=== PATIENT | male | born 1990 | race Caucasian/White ===

== ENCOUNTER 2018-03-31 16:36 | Emergency (ER) | payer MEDICAID ==
[~2018-03-31] VITALS: Ht 170.2 cm; Wt 97.5 kg
[2018-03-31 17:06] VITALS: BP 138/71
--- NOTE | 2018-03-31 17:56 | NUR ---
27/M BIB MOM WITH C/O ALLERGIC REACTION WITH HIVES STARTED YESTERDAY, DENIES NEW MEDS OR FOOD. DENIES N/V/D; SKIN IS PINK/WARM/DRY; AAOX4 WITH EVEN AND STEADY GAIT; LUNGS CLEAR BL; PT DENIES ANY FEVER, CP, SOB, OR COUGH AT THIS TIME; PATIENT STATES PAIN OF 0/10 AT THIS TIME. PATIENT POSITIONED FOR COMFORT; HOB ELEVATED; BEDRAILS UP X2; BED DOWN. ER MD MADE AWARE OF PT STATUS.
--- NOTE | 2018-03-31 17:57 | NUR ---
Patient being evaluated by physician at bedside.
[2018-03-31] MEDS ORDERED: diphenhydrAMINE 50 MG/ML VIAL IM ONE (18:05)
[2018-03-31] MEDS ORDERED: methylPREDNISolone SS 125 MG in WATER STERILE 2 ML IM ONE (18:05)
[2018-03-31] MEDS ORDERED: FAMOTIDINE 20 MG TAB PO ONE (18:05)
[2018-03-31 18:53] VITALS: BP 121/70
--- NOTE | 2018-03-31 18:54 | NUR ---
Patient discharged with v/s stable. Written and verbal after care instructions given and explained. Patient alert, oriented and verbalized understanding of instructions. Ambulatory with steady gait. All questions addressed prior to discharge. ID band removed. Patient advised to follow up with PMD. Rx of CLARITIN,PREDNISONE AND PEPCID given. Patient educated on indication of medication including possible reaction and side effects. Opportunity to ask questions provided and answered.
== END 2018-03-31 18:54 | disposition home or self-care (01) ==
LOC: MED 16:36
DX: L50.9 Urticaria, unspecified (principal)
CPT/HCPCS: 96372; 99284; J1200; J2930